=== PATIENT | female | born 1975 | race Caucasian/White ===

== ENCOUNTER 2021-01-15 01:56 | Emergency (ER) | payer OTHER ==
[~2021-01-15] VITALS: Ht 157.5 cm; Wt 65.8 kg
[2021-01-15 02:43] VITALS: BP 124/78
== END 2021-01-15 02:43 | disposition left against medical advice (07) ==
LOC: ER 01:56 → EDBD 01:56 → ER 02:43
DX: R06.02 Shortness of breath (principal); J45.909 Unspecified asthma, uncomplicated; Z53.21 Procedure and treatment not carried out due to patient leaving prior to being seen by health care provider